=== PATIENT | male | born 1970 | race Caucasian/White ===

== ENCOUNTER 2024-08-12 13:11 | Observation (INO) ==
[2024-08-12 13:20] VITALS: BMI 32.1
[2024-08-12] MEDS ORDERED: NS 1,000 ML IV 1,000 ML ONE (13:33)
--- NOTE | 2024-08-12 13:35 | DR.HYPOGLY ---
HPI Time Seen Time Seen by Provider: 08/12/24 13:33 PCP Primary Care Physician: NFD Complaint Chief Complaint Doctors Comments: This patient stated he has been out of his insulin since March and felt like he was doing better now and he did not try to restart it. Report dizziness and frequent urination. States that the meat at home read high and upon evaluation initially in the emergency department media also read high. Chief Complaint:: pt states he has been out of insulin since March and has felt like he was doing good without it until now. Pt reports dizziness and frequent urination Source History Provided: Patient Mode of Arrival Mode of Arrival: Ambulatory Timing Onset of Chief Complaint: 08/10/24 PMH PMH Past Medical History: Yes Past Medical History: COPD, Diabetes, Dyslipidemia, Hypertension and Renal Disease Past Surgical History: Yes Past Surgical History Comment: Nephrectomy, cataract surgery x2 Family History History of Family Medical Conditions: No Social History Alcohol Use: None Do you use any recreational Drugs:: Yes (marijuana 2x daily) Lives With: Spouse Infectious screening Have you traveled outside the country in the last 6 months?: No Isolation: Standard ROS Review of Systems Constitutional: Other (hyperglycemia,polyuria) Eyes: No Symptoms Reported ENTM: No Symptoms Reported Respiratoy: No Symptoms Reported Cardiovascular: No Symptoms Reported Gastrointestinal/Abdominal: No Symptoms Reported Genitourinary: Frequency Neurological: No Symptoms Reported Musculoskeletal: No Symptoms Reported Integumentary: No Symptoms Reported Hematologic/Lymphatic: No Symptoms Reported Endocrine: Increased Thirst and Other (crys;yuria) Psychiatric: No Symptoms Reported PE Vital Signs Vitals: Vital Signs Temperature 97.6 F Pulse Rate [Left Radial] 67 Pulse Rate 77 Respiratory Rate 18 Respiratory Rate 21 Blood Pressure [Left Arm] 172/81 Blood Pressure 128/74 O2 Sat by Pulse Oximetry 92 O2 Sat by Pulse Oximetry 98 General Limitations: No Limitations General Appearance: In No Apparent Distress Eyes Eye exam: Normal Appearance ENT ENT Exam: Normal Exam Nose Exam: Normal Nose Exam Mouth Exam: Normal Inspection Throat Exam: Normal Inspection Neck Neck Exam: Normal Inspection Chest Chest Inspection: Normal Inspection Respiratory Respiratory Exam: Normal Lung Sounds Bilat Respiratory Exam: Bilateral: Clear to Auscultation Abdominal Exam Abdominal Exam: Normal Inspection Extremities Extremities Exam: Normal Inspection Back Back Exam: Normal Inspection and Full ROM Neurologic Neurological Exam: Alert, Oriented X3 and CN II-XII Intact Patient Oriented To: Person, Place and Time Speech: Fluid Speech Motor Strength - LUE: 5/5 Motor Strength - RUE: 5/5 Motor Strength - LLE: 5/5 Motor Strength - RLE: 5/5 Psychiatric Psychiatric Exam: Normal Affect Skin Skin Exam: Warm, Dry and Intact MDM Additional information Findings: Patient was hyperglycemic on the bedside monitor read as high at home COURSE Treatment Treatment: Patient is gross given her a bedside glucose check at the hospital and it was high on the monitor we did could be metabolic panel and his blood sugar from the lab was 756. The patient already been started on a liter fluid bolus and after they have the results of that lab he was given insulin 16 units IV. We did labs which his urine showed glucose but no ketones and the blood acetone level was negative. This patient sodium was also low so he was a hyperosmolar nonketotic state. Patient blood sugar decreased to 576 after he was given a liter bolus of fluid and 16 units of Novolin R at the. He was negative for ketones in his urine and in the blood. Spoke to Dr. Santiago at 1600 about this patient he said he put him in the hospital given fluids and insulin. Talk to the patient about him being referred to observation and the hospital and he was agreeable to the observation. They spoke to the case management team and they said he could be putting him for observation. [facility] Labs Reviewed Laboratory Results Reviewed?: Yes 08/12/24 13:40 08/12/24 13:40 Laboratory: WBC 8.6 X10^3/uL (3.6-10.0) 08/12/24 13:40 RBC 4.63 X10^6/uL (4.7-6.0) L 08/12/24 13:40 Hgb 13.9 g/dL (13.5-18.0) 08/12/24 13:40 Hct 40.6 % (42.0-54.0) L 08/12/24 13:40 MCV 87.8 fL (80.0-100.0) 08/12/24 13:40 MCH 30.1 pg (27.0-34.0) 08/12/24 13:40 MCHC 34.3 g/dL (33.0-35.0) 08/12/24 13:40 RDW 12.7 % (11.6-16.5) 08/12/24 13:40 Plt Count 245 X10^3/uL (150.0-450.0) 08/12/24 13:40 MPV 8.4 fL (7.4-11.0) 08/12/24 13:40 Neut % (Auto) 68.0 % (42.0-75.0) 08/12/24 13:40 Lymph % (Auto) 21.2 % (21.0-51.0) 08/12/24 13:40 [place] % (Auto) 7.2 % (0.0-13.0) 08/12/24 13:40 Eos % (Auto) 1.4 % (0.9-2.9) 08/12/24 13:40 Baso % (Auto) 2.2 % (0.2-1.0) H 08/12/24 13:40 Neut # (Auto) 5.8 x10^3/uL (2.2-4.8) H 08/12/24 13:40 Lymph # (Auto) 1.8 X10^3/uL (1.3-2.9) 08/12/24 13:40 [place] # (Auto) 0.6 x10^3/uL (0.3-0.8) 08/12/24 13:40 Eos # (Auto) 0.1 x10^3/uL (0.0-0.2) 08/12/24 13:40 Baso # (Auto) 0.2 X10^3/uL (0.0-0.1) H 08/12/24 13:40 Absolute Nucleated RBC 0.0 /100WBC 08/12/24 13:40 Sodium 123 mmol/L (136-145) L* 08/12/24 13:40 Corrected Sodium 139 mmol/L (136-145) 08/12/24 13:40 Potassium 3.9 mmol/L (3.5-5.1) 08/12/24 13:40 Chloride 91 mmol/L (98-107) L 08/12/24 13:40 Carbon Dioxide 27.6 mmol/L (21-32) 08/12/24 13:40 BUN 21 mg/dL (7-18) H 08/12/24 13:40 Creatinine 1.81 mg/dL (0.70-1.30) H 08/12/24 13:40 Est GFR (MDRD) Af Amer 50 (>60) L 08/12/24 13:40 Est GFR (MDRD) Non-Af 42 (>60) L 08/12/24 13:40 Glucose 757 mg/dL (65-99) H* 08/12/24 13:40 POC Glucose (mg/dL) 503 mg/dL (65-99) H* 08/12/24 16:15 Calcium 7.9 mg/dL (8.5-10.1) L 08/12/24 13:40 Corrected Calcium 9.9 mg/dL (8.5-10.1) 08/12/24 13:40 Total Bilirubin 0.30 mg/dL (0.2-1.0) 08/12/24 13:40 AST 20 Units/L (15-37) 08/12/24 13:40 ALT 21 Units/L (12-78) 08/12/24 13:40 Alkaline Phosphatase 343 Units/L (46-116) H 08/12/24 13:40 Total Protein 6.1 g/dL (6.4-8.2) L 08/12/24 13:40 Albumin 1.5 g/dL (3.4-5.0) L 08/12/24 13:40 Globulin 4.6 g/dL (2.5-4.5) H 08/12/24 13:40 Albumin/Globulin Ratio 0.3 Ratio (1.1-2.1) L 08/12/24 13:40 Specimen Type Random urine 08/12/24 13:47 Urine Color Straw (YELLOW) 08/12/24 13:47 Urine Appearance Clear (CLEAR) 08/12/24 13:47 Urine pH 6.0 (5.0 - 8.0) 08/12/24 13:47 Ur Specific Baxter 1.010 (1.000-1.030) 08/12/24 13:47 Urine Protein 4+ (NEGATIVE) 08/12/24 13:47 Urine Glucose (UA) 4+ (NEGATIVE) 08/12/24 13:47 Urine Ketones Negative (NEGATIVE) 08/12/24 13:47 Urine Blood 2+ (NEGATIVE) 08/12/24 13:47 Urine Nitrite Negative (NEGATIVE) 08/12/24 13:47 Urine Bilirubin Negative (NEGATIVE) 08/12/24 13:47 Urine Urobilinogen Normal (NORMAL) 08/12/24 13:47 Ur Leukocyte Esterase Negative (NEGATIVE) 08/12/24 13:47 Urine RBC 0-2 /HPF (0-3) 08/12/24 13:47 Urine WBC 0-2 /HPF (0-5) 08/12/24 13:47 Ur Squamous Epith Cells Rare /HPF (NEGATIVE) 08/12/24 13:47 Urine Bacteria Negative /HPF (NEGATIVE) 08/12/24 13:47 Ur Culture Indicated? No/not indicated 08/12/24 13:47 Acetone, Semi-Quant Negative (NEGATIVE) 08/12/24 13:40 Opioid Opioid Risk Tool Total: 0 Total Score Risk Category: Low Risk Copyright: Denis MARTINEZ predicting aberrant behaviors Discharge Plan Diagnosis Discharge Problem: Hyperosmolar hyperglycemic state (HHS), Hypertension Discharge Plan Patient Disposition: ADMITTED INPATIENT Condition: Stable Health Concerns: Post Hospitalization: new medications and changes needed to prevent readmission or further decline. Pt educated and given instructions on all concerns. Plan of Treatment: Continue with present treatment and follow up plan. Pt is to keep follow up appointment as instructed and take medications as ordered. Orders to Discharge Patient Discharge Orders: Transfer (Routine); Ordered 08/12/24 Ordered By: Ko Solis Follow ups/Referrals Follow ups/Referrals: NFD,None [Primary Care Provider] - 3 days Instructions Stand Alone Forms: Find Help Web Site, Post Hospital Follow Up Care Print Language: KITTITIAN
[2024-08-12] MEDS: NS 1,000 ML IV 1,000 ML IV ONE (13:44)
[2024-08-12 13:57] LABS: BASOPHILS # (AUTO) 0.2 X10^3/uL (0.0-0.1); BASOPHILS % (AUTO) 2.2 % (0.2-1.0); EOSINOPHILS # (AUTO) 0.1 x10^3/uL (0.0-0.2); EOSINOPHILS % (AUTO) 1.4 % (0.9-2.9); HEMATOCRIT 40.6 % (42.0-54.0); HEMOGLOBIN 13.9 g/dL (13.5-18.0); LYMPHOCYTES # (AUTO) 1.8 X10^3/uL (1.3-2.9); LYMPHOCYTES % (AUTO) 21.2 % (21.0-51.0); MEAN CORPUSCULAR HEMOGLOBIN 30.1 pg (27.0-34.0); MEAN CORPUSCULAR HGB CONC 34.3 g/dL (33.0-35.0); MEAN CORPUSCULAR VOLUME 87.8 fL (80.0-100.0); MEAN PLATELET VOLUME 8.4 fL (7.4-11.0); MONOCYTES # (AUTO) 0.6 x10^3/uL (0.3-0.8); MONOCYTES % (AUTO) 7.2 % (0.0-13.0); NEUTROPHILS # (AUTO) 5.8 x10^3/uL (2.2-4.8); PLATELET COUNT 245 X10^3/uL (150.0-450.0); RED BLOOD COUNT 4.63 X10^6/uL (4.7-6.0); RED CELL DISTRIBUTION WIDTH 12.7 % (11.6-16.5); WHITE BLOOD COUNT 8.6 X10^3/uL (3.6-10.0)
[2024-08-12 13:59] LABS: BILIRUBIN,URINE NEGATIVE (NEGATIVE); BLOOD/HEMOGLOBIN,URINE 2+ (NEGATIVE); GLUCOSE, URINE 4+ (NEGATIVE); KETONES,URINE NEGATIVE (NEGATIVE); LEUKOCYTE ESTERASE ,URINE NEGATIVE (NEGATIVE); NITRITES,URINE NEGATIVE (NEGATIVE); PROTEIN,URINE 4+ (NEGATIVE); UROBILINOGEN,URINE NORMAL (NORMAL)
[2024-08-12 14:03] LABS: SERUM ACETONE NEGATIVE (NEGATIVE)
[2024-08-12 14:09] LABS: ALANINE AMINOTRANSFERASE 21 Units/L (12-78); ALBUMIN 1.5 g/dL (3.4-5.0); ALKALINE PHOSPHATASE 343 Units/L (46-116); ASPARTATE AMINO TRANSFERASE 20 Units/L (15-37); BLOOD UREA NITROGEN 21 mg/dL (7-18); CALCIUM 7.9 mg/dL (8.5-10.1); CARBON DIOXIDE 27.6 mmol/L (21-32); CHLORIDE 91 mmol/L (98-107); COR CA(FOR HYPOALB) 9.9 mg/dL (8.5-10.1); CREATININE 1.81 mg/dL (0.70-1.30); POTASSIUM 3.9 mmol/L (3.5-5.1); TOTAL PROTEIN 6.1 g/dL (6.4-8.2); eGFR NON BLACK RACES 42 (>60)
[2024-08-12 14:10] LABS: APPEARANCE,URINE CLEAR (CLEAR); COLOR,URINE STRAW (YELLOW)
[2024-08-12 14:11] LABS: BACTERIA,URINE NEGATIVE /HPF (NEGATIVE); RBC,URINE 0-2 /HPF (0-3); SQUAMOUS EPITHELIAL CELL,UR RARE /HPF (NEGATIVE)
[2024-08-12 14:12] LABS: COR NA(FOR HYPERGLY) 139 mmol/L (136-145); GLUCOSE 757 mg/dL (65-99)
[2024-08-12 14:13] LABS: SODIUM 123 mmol/L (136-145)
[2024-08-12] MEDS ORDERED: NovoLIN R (or HumuLIN R) ONE (14:21)
[2024-08-12] MEDS: NovoLIN R (or HumuLIN R) SUBCUT PRN (14:34)
[2024-08-12] MEDS: NS 1,000 ML IV 1,000 ML IV SCH (14:49)
[2024-08-13 05:32] LABS: BASOPHILS # (AUTO) 0.1 X10^3/uL (0.0-0.1); BASOPHILS % (AUTO) 0.9 % (0.2-1.0); EOSINOPHILS # (AUTO) 0.3 x10^3/uL (0.0-0.2); EOSINOPHILS % (AUTO) 3.7 % (0.9-2.9); HEMATOCRIT 37.4 % (42.0-54.0); HEMOGLOBIN 13.3 g/dL (13.5-18.0); LYMPHOCYTES # (AUTO) 2.2 X10^3/uL (1.3-2.9); LYMPHOCYTES % (AUTO) 25.7 % (21.0-51.0); MEAN CORPUSCULAR HEMOGLOBIN 30.7 pg (27.0-34.0); MEAN CORPUSCULAR HGB CONC 35.6 g/dL (33.0-35.0); MEAN CORPUSCULAR VOLUME 86.4 fL (80.0-100.0); MEAN PLATELET VOLUME 7.8 fL (7.4-11.0); MONOCYTES # (AUTO) 0.8 x10^3/uL (0.3-0.8); MONOCYTES % (AUTO) 9.2 % (0.0-13.0); NEUTROPHILS # (AUTO) 5.2 x10^3/uL (2.2-4.8); NEUTROPHILS % (AUTO) 60.5 % (42.0-75.0); PLATELET COUNT 228 X10^3/uL (150.0-450.0); RED BLOOD COUNT 4.33 X10^6/uL (4.7-6.0); RED CELL DISTRIBUTION WIDTH 12.5 % (11.6-16.5); WHITE BLOOD COUNT 8.5 X10^3/uL (3.6-10.0)
[2024-08-13 05:46] LABS: ALANINE AMINOTRANSFERASE 17 Units/L (12-78); ALBUMIN 1.1 g/dL (3.4-5.0); ALKALINE PHOSPHATASE 146 Units/L (46-116); ASPARTATE AMINO TRANSFERASE 23 Units/L (15-37); BLOOD UREA NITROGEN 14 mg/dL (7-18); CALCIUM 7.5 mg/dL (8.5-10.1); CARBON DIOXIDE 23.7 mmol/L (21-32); CHLORIDE 105 mmol/L (98-107); COR CA(FOR HYPOALB) 9.8 mg/dL (8.5-10.1); COR NA(FOR HYPERGLY) 141 mmol/L (136-145); CREATININE 1.21 mg/dL (0.70-1.30); GLUCOSE 267 mg/dL (65-99); POTASSIUM 3.6 mmol/L (3.5-5.1); SODIUM 137 mmol/L (136-145); TOTAL PROTEIN 5.1 g/dL (6.4-8.2); eGFR NON BLACK RACES > 60 (>60)
[2024-08-13] MEDS ORDERED: CONSULT PHARMACY - POTASSIUM & MAGNESIUM XX SCH (07:00)
[2024-08-13] MEDS: K-DUR TAB 20 MEQ PO SCH (08:19)
[2024-08-13] MEDS: MAG-OX TAB PO SCH (08:19)
[2024-08-13] MEDS: ZESTRIL TAB 40 MG PO SCH (09:29)
[2024-08-13] MEDS: ACTOS PO SCH (09:30)
[2024-08-13] MEDS: GLUCOPHAGE XR 24-HR PO SCH (09:30)
[2024-08-13] MEDS: CATAPRES TAB 0.1 MG PO ONE (20:17)
--- NOTE | 2024-08-13 21:05 | EKG ---
Test Reason : htn protocol Blood Pressure : */* mmHG Vent. Rate : 66 BPM Atrial Rate : 66 BPM P-R Int : 190 ms QRS Dur : 102 ms QT Int : 390 ms P-R-T Axes : 30 9 29 degrees QTc Int : 408 ms Normal sinus rhythm Normal ECG No previous ECGs available Confirmed by Enrique Jiménez MD ([id number]) on 08/14/2024 7:22:15 AM Referred By: Confirmed By: Enrique Jiménez MD
[2024-08-14 04:27] VITALS: RESP 18
[2024-08-14 05:42] LABS: BASOPHILS # (AUTO) 0.1 X10^3/uL (0.0-0.1); EOSINOPHILS # (AUTO) 0.3 x10^3/uL (0.0-0.2); HEMATOCRIT 36.7 % (42.0-54.0); HEMOGLOBIN 12.9 g/dL (13.5-18.0); LYMPHOCYTES # (AUTO) 2.2 X10^3/uL (1.3-2.9); LYMPHOCYTES % (AUTO) 26.6 % (21.0-51.0); MEAN CORPUSCULAR HEMOGLOBIN 30.6 pg (27.0-34.0); MEAN CORPUSCULAR VOLUME 87.3 fL (80.0-100.0); MEAN PLATELET VOLUME 8.1 fL (7.4-11.0); MONOCYTES # (AUTO) 0.8 x10^3/uL (0.3-0.8); MONOCYTES % (AUTO) 9.3 % (0.0-13.0); NEUTROPHILS % (AUTO) 60.1 % (42.0-75.0); PLATELET COUNT 228 X10^3/uL (150.0-450.0); RED BLOOD COUNT 4.21 X10^6/uL (4.7-6.0); RED CELL DISTRIBUTION WIDTH 13.1 % (11.6-16.5); WHITE BLOOD COUNT 8.3 X10^3/uL (3.6-10.0)
[2024-08-14 05:55] LABS: ALANINE AMINOTRANSFERASE 17 Units/L (12-78); ALBUMIN 1.1 g/dL (3.4-5.0); ALKALINE PHOSPHATASE 146 Units/L (46-116); ASPARTATE AMINO TRANSFERASE 20 Units/L (15-37); BLOOD UREA NITROGEN 17 mg/dL (7-18); CALCIUM 7.7 mg/dL (8.5-10.1); CARBON DIOXIDE 22.6 mmol/L (21-32); CHLORIDE 106 mmol/L (98-107); COR NA(FOR HYPERGLY) 141 mmol/L (136-145); GLUCOSE 247 mg/dL (65-99); MAGNESIUM 1.6 mg/dL (2.0-2.9); POTASSIUM 3.7 mmol/L (3.5-5.1); SODIUM 137 mmol/L (136-145); TOTAL PROTEIN 4.9 g/dL (6.4-8.2); eGFR NON BLACK RACES > 60 (>60)
[2024-08-14] MEDS ORDERED: CONSULT PHARMACY - POTASSIUM & MAGNESIUM XX SCH (07:00)
[2024-08-14] MEDS: MAG-OX TAB PO SCH (08:18)
[2024-08-14] MEDS: K-DUR TAB 20 MEQ PO SCH (08:18)
[2024-08-14 08:27] VITALS: PULSE 60; TEMP 97.9; O2SAT 95
[2024-08-14 08:28] VITALS: BP 130/95
[2024-08-14] MEDS: NORVASC TAB 10 MG PO SCH (08:54)
== END 2024-08-14 10:45 | disposition home or self-care (01) ==
LOC: ER 13:11 → MED/SURG 13:11
PROVIDERS: ADMIT Obstetrics & Gynecology Obstetrics; ATTEND Obstetrics & Gynecology Obstetrics
DX: E83.51 Hypocalcemia; R53.1 Weakness; R42 Dizziness and giddiness; F12.90 Cannabis use, unspecified, uncomplicated; R94.4 Abnormal results of kidney function studies; Z91.148 Patient's other noncompliance with medication regimen for other reason; J44.9 Chronic obstructive pulmonary disease, unspecified; Z72.0 Tobacco use; E11.00 Type 2 diabetes mellitus with hyperosmolarity without nonketotic hyperglycemic-hyperosmolar coma (NKHHC); Z90.5 Acquired absence of kidney; I10 Essential (primary) hypertension; E11.65 Type 2 diabetes mellitus with hyperglycemia; E87.1 Hypo-osmolality and hyponatremia; R41.82 Altered mental status, unspecified; Z79.4 Long term (current) use of insulin; E78.5 Hyperlipidemia, unspecified; E83.42 Hypomagnesemia